=== PATIENT | female | born 1985 | race Caucasian/White ===

== ENCOUNTER 2023-06-10 11:49 | Day surgery (SDC) | payer OTHER ==
[~2023-06-10] VITALS: Ht 160 cm; Wt 115.2 kg
[~2023-06-10 11:49] MED LIST: Lactated Ringer's 1,000 ML IV ONE
[2023-06-10] MEDS ORDERED: Lactated Ringer's 1,000 ML IV ONE ×2 (12:57)
[2023-06-10] MEDS ORDERED: NAPR220 PO (13:05)
[2023-06-10] MEDS ORDERED: Bentyl20 MG PO (13:06)
[2023-06-10] MEDS ORDERED: SUMA25 PO (13:06)
[2023-06-10] MEDS ORDERED: TRAZ50 PO (13:07)
[2023-06-10] MEDS ORDERED: FLUOXETINE HCL60 MG PO (13:07)
[2023-06-10] MEDS ORDERED: BENADRYL25 MG PO (13:07)
[2023-06-10] MEDS ORDERED: ALBU90OI (13:08)
[2023-06-10] MEDS ORDERED: TOPI25 PO (13:08)
[2023-06-10] MEDS ORDERED: Midazolam HCl 1MG / ML 2ML Vial ONE (13:34)
[2023-06-10] MEDS ORDERED: propofoL 20 ML IV ONE (13:34)
[2023-06-10] MEDS ORDERED: propofoL 50 ML IV ONE (14:09)
== END 2023-06-10 15:01 | disposition home or self-care (01) ==
LOC: ORSCSDS 11:49
PROVIDERS: Internal Medicine Gastroenterology
PROC: 0DBE8ZX Excision of Large Intestine, Via Natural or Artificial Opening Endoscopic, Diagnostic (ICD-10-PCS; principal; 2023-06-10 13:45)
PROC: 0DBL8ZX Excision of Transverse Colon, Via Natural or Artificial Opening Endoscopic, Diagnostic (ICD-10-PCS; principal; 2023-06-10 13:45)
PROC: 0DB78ZX Excision of Stomach, Pylorus, Via Natural or Artificial Opening Endoscopic, Diagnostic (ICD-10-PCS; principal; 2023-06-10 13:45)
PROC: 0DB98ZX Excision of Duodenum, Via Natural or Artificial Opening Endoscopic, Diagnostic (ICD-10-PCS; principal; 2023-06-10 13:45)
DX: R19.7 Diarrhea, unspecified (principal); Z87.19 Personal history of other diseases of the digestive system; R10.84 Generalized abdominal pain; K29.60 Other gastritis without bleeding; K57.30 Diverticulosis of large intestine without perforation or abscess without bleeding; K64.4 Residual hemorrhoidal skin tags; B96.81 Helicobacter pylori [H. pylori] as the cause of diseases classified elsewhere; D12.3 Benign neoplasm of transverse colon; J45.909 Unspecified asthma, uncomplicated; E66.01 Morbid (severe) obesity due to excess calories; Z68.42 Body mass index [BMI] 45.0-49.9, adult; Z79.899 Other long term (current) drug therapy
CPT/HCPCS: 88305; 88342; J2250; J2704; J7120